=== PATIENT | female | born 1995 | race Caucasian/White ===

== ENCOUNTER 2017-03-16 21:49 | Emergency (ER) | payer OTHER ==
[~2017-03-16] VITALS: Ht 170.2 cm; Wt 65.8 kg
[2017-03-16 22:00] VITALS: BP 170/77
--- NOTE | 2017-03-16 22:22 | Emergency Room Report ---
History of Present Illness General Chief Complaint: Pain Source: Patient Present Illness HPI 21-year-old female with no sig pmhx p/w right-sided flank pain for one day Patient states pain started gradually today, localized to flank, non radiating, sharp and burning in nature, intermittent. No relieving or exacerbating factors. Severity is 6/10. Pt reports n/v, 4 episodes of nbnb vomiting, denies diarrhea Denies fever, chills. No hx of abdominal surgeries. No hx of endoscopies/colonoscopies. Patient states that one week ago she felt dysuria, states that she is prone to UTIs, she self medicated herself by drinking Azo and a lot of cranberry juice Allergies: Coded Allergies: No Known Allergies (Unverified , 03/16/17) Patient History Past Medical History: see triage record Past Surgical History: none Pertinent Family History: none Last Menstrual Period: 2 weeks ago Now: No - nexaplon implant Reviewed Nursing Documentation: PMH: Agreed, PSxH: Agreed Nursing Documentation-PMH Past Medical History: No History, Except For Hx Asthma: Yes Review of Systems All Other Systems: negative except mentioned in HPI Physical Exam Vital Signs Date Time Temp Pulse Resp B/P (MAP) Pulse Ox O2 Delivery O2 Flow Rate FiO2 03/16/17 21:55 97.5 81 16 170/77 100 Room Air Sp02 EP Interpretation: reviewed, normal General Appearance: alert, GCS 15, non-toxic, moderate distress Head: normocephalic, atraumatic Eyes: bilateral eye normal inspection, bilateral eye PERRL, bilateral eye EOMI ENT: normal ENT inspection, normal pharynx, normal voice, moist mucus membranes Neck: normal inspection, full range of motion, supple Respiratory: normal inspection, lungs clear, normal breath sounds, no respiratory distress, no retraction, no wheezing, speaking full sentences, chest symmetrical Cardiovascular #1: normal inspection, regular rate, rhythm, no edema, normal capillary refill Cardiovascular #2: 2+ radial (R), 2+ radial (L) Gastrointestinal: soft, non-distended, no guarding, other - No suprapubic or left lower quadrant tenderness, mild right-sided CVA tenderness, +RLQ tenderness without rebound. Cornejo sign is negative Musculoskeletal: normal inspection, back normal, normal range of motion, non- tender Neurologic: normal inspection, alert, oriented x3, responsive, motor strength/ tone normal, sensory intact, normal gait, speech normal Psychiatric: normal inspection, judgement/insight normal, memory normal Skin: normal inspection, normal color, no rash, warm/dry, well hydrated, normal turgor Medical Decision Making Diagnostic Impression: Primary Impression: Ovarian cyst ER Course 21-year-old female with right-sided flank pain Differential Diagnosis: UTI/pyelo, appendicitis, ovarian cyst rupture Plan: Basic labs, ua Zofran IVF ER course: Patient has remained stable during ED stay. RLE pain --- CT performed, appendix normal US performed - ovarian cyst without torsion Repeat abdominal exam is nontender. Tolerating PO feels better will dc home Disposition: Patient is to be discharged to home. Patient is instructed to follow up with their primary care doctor and OBGYN within 5 days. Strict return precautions discussed with patient such as fever, chills, worsening/severe abdominal pain, nausea, vomiting, black or bloody stools, which may indicate severe illness. Patient verbalizes understanding and agrees with plan. Please note that this Emergency Department Report was dictated using [employer] nurse practitioner technology software, occasionally this can lead to erroneous entry secondary to interpretation by the dictation equipment Laboratory Tests Test 03/16/17 22:05 03/16/17 22:20 Urine Color Pale yellow Urine Appearance Clear Urine pH 5 (4.5-8.0) Urine Specific [place] 1.020 (1.005-1.035) Urine Protein 1+ (NEGATIVE) H Urine Glucose (UA) Negative (NEGATIVE) Urine Ketones 2+ (NEGATIVE) H Urine Occult Blood 1+ (NEGATIVE) H Urine Nitrite Negative (NEGATIVE) Urine Bilirubin Negative (NEGATIVE) Urine Urobilinogen Normal MG/DL (0.0-1.0) Urine Leukocyte Esterase 1+ (NEGATIVE) H Urine RBC 0-2 /HPF (0 - 2) Urine WBC 2-4 /HPF (0 - 2) Urine Squamous Epithelial Cells Few /LPF (NONE/OCC) Urine Bacteria Few /HPF (NONE) Urine HCG, Qualitative Negative White Blood Count 11.4 K/UL (4.8-10.8) H Red Blood Count 4.88 M/UL (4.20-5.40) Hemoglobin 14.6 G/DL (12.0-16.0) Hematocrit 43.5 % (37.0-47.0) Mean Corpuscular Volume 89 FL (80-99) Mean Corpuscular Hemoglobin 30.0 PG (27.0-31.0) Mean Corpuscular Hemoglobin Concent 33.7 G/DL (32.0-36.0) Red Cell Distribution Width 12.4 % (11.6-14.8) Platelet Count 274 K/UL (150-450) Mean Platelet Volume 8.2 FL (6.5-10.1) Neutrophils (%) (Auto) 74.1 % (45.0-75.0) Lymphocytes (%) (Auto) 19.0 % (20.0-45.0) L Monocytes (%) (Auto) 5.3 % (1.0-10.0) Eosinophils (%) (Auto) 0.6 % (0.0-3.0) Basophils (%) (Auto) 1.0 % (0.0-2.0) Sodium Level 136 MMOL/L (136-145) Potassium Level 3.4 MMOL/L (3.5-5.1) L Chloride Level 100 MMOL/L (98-107) Carbon Dioxide Level 25 MMOL/L (21-32) Anion Gap 11 mmol/L (5-15) Blood Urea Nitrogen 11 mg/dL (7-18) Creatinine 1.0 MG/DL (0.55-1.30) Estimate Glomerular Filtration Rate > 60 mL/min (>60) Glucose Level 106 MG/DL (74-106) Calcium Level 10.0 MG/DL (8.5-10.1) Total Bilirubin 0.4 MG/DL (0.2-1.0) Aspartate Amino Transferase (AST) 15 U/L (15-37) Alanine Aminotransferase (ALT) 20 U/L (12-78) Alkaline Phosphatase 71 U/L (46-116) Total Protein 8.8 G/DL (6.4-8.2) H Albumin 4.9 G/DL (3.4-5.0) Globulin 3.9 g/dL Albumin/Globulin Ratio 1.3 (1.0-2.7) CT/MRI/US Diagnostic Results CT/MRI/US Diagnostic Results #1: Imaging Test Ordered: CT abdo pelvis Impression CT ABDOMEN & PELVIS With Contrast: 2.1 x 1.9 cm right ovarian cyst is suspected. If there is clinical concern for ovarian torsion, then pelvic ultrasound is recommended for further evaluation. Evaluation of the rectosigmoid colon is limited secondary to poor distention. Some wall thickening of the rectosigmoid colon cannot be excluded. The appendix is normal. No evidence for significant bowel loop dilation to suggest an obstructive process. No evidence for hydronephrosis. No definite evidence for ureteral stone. The intra-abdominal organs are unremarkable. Trace amount of nonspecific free fluid in the pelvis. No evidence for free intraperitoneal gas. by STAT RAD CT/MRI/US Diagnostic Results #2: Imaging Test Ordered: US pelvic Impression pelvic sono performed R ovarian cyst good flow b/l , no torsion Last Vital Signs Date Time Temp Pulse Resp B/P (MAP) Pulse Ox O2 Delivery O2 Flow Rate FiO2 03/16/17 21:55 97.5 81 16 170/77 100 Room Air Disposition: HOME, SELF-CARE Condition: Improved Eduardo Aviles M.D. Mar 16, 2017 22:22
[2017-03-16 22:23] LABS: APPEARANCE,URINE CLEAR; BILIRUBIN, URINE NEGATIVE (NEGATIVE); COLOR,URINE PALE YELLOW; GLUCOSE, URINE (UA) NEGATIVE (NEGATIVE); KETONES,URINE 2+ (NEGATIVE); LEUKOCYTE ESTERASE ,URINE 1+ (NEGATIVE); NITRITE,URINE NEGATIVE (NEGATIVE); PH,URINE 5 (4.5-8.0); PROTEIN,URINE 1+ (NEGATIVE); UROBILINOGEN,URINE NORMAL MG/DL (0.0-1.0)
[2017-03-16 22:47] LABS: EOSINOPHILS % (AUTO) 0.6 % (0.0-3.0); HEMATOCRIT 43.5 % (37.0-47.0); HEMOGLOBIN 14.6 G/DL (12.0-16.0); MEAN CORPUSCULAR VOLUME 89 FL (80-99); MONOCYTES % (AUTO) 5.3 % (1.0-10.0); NEUTROPHILS % (AUTO) 74.1 % (45.0-75.0); PLATELET COUNT 274 K/UL (150-450); RED BLOOD COUNT 4.88 M/UL (4.20-5.40); RED CELL DISTRIBUTION WIDTH 12.4 % (11.6-14.8); WHITE BLOOD COUNT 11.4 K/UL (4.8-10.8)
[2017-03-16 23:11] LABS: ALANINE AMINOTRANSFERASE 20 U/L (12-78); ALBUMIN 4.9 G/DL (3.4-5.0); ALBUMIN/GLOBULIN RATIO 1.3 (1.0-2.7); ALKALINE PHOSPHATASE 71 U/L (46-116); ANION GAP 11 mmol/L (5-15); ASPARTATE AMINO TRANSFERASE 15 U/L (15-37); BILIRUBIN,TOTAL 0.4 MG/DL (0.2-1.0); BLOOD UREA NITROGEN 11 mg/dL (7-18); CARBON DIOXIDE 25 MMOL/L (21-32); CHLORIDE 100 MMOL/L (98-107); POTASSIUM 3.4 MMOL/L (3.5-5.1); SODIUM 136 MMOL/L (136-145)
[2017-03-16] MEDS ORDERED: Ketorolac 30mg Inj IV ONE (23:30)
[2017-03-17] VITALS: BP 165/69
[2017-03-17 01:55] VITALS: BP 151/61
--- NOTE | 2017-03-17 11:09 | Diagnostic Imaging Report ---
Indication: Pelvic pain Technique: Ultrasound examination of the pelvis obtained transabdominally and endovaginally. Comparison: None. Findings: The uterus is normal in size and echogenicity. Endometrium is thin. Left ovary is normal. The right ovary contains an anechoic mass measuring 2.1 cm consistent with a cyst. No significant pelvic fluid. Impression: Right ovarian cyst, likely physiologic. Are otherwise unremarkable.
--- NOTE | 2017-03-17 11:09 | Diagnostic Imaging Report ---
Indication: Right flank pain Technique: CT scan of the abdomen and pelvis was performed from the diaphragms to the symphysis pubis with intravenous contrast material and oral contrast material. Biphasic liver scanning was employed. 5 mm sections were generated. Axial, coronal, and sagittal images are presented. Dose: Total Dose Length Product - DLP [address] Dose Index - CTDIvol(s) 12.33 mGy. Comparison: None Findings: The liver, gallbladder, and spleen are unremarkable. The pancreas is normal. Aorta and inferior vena cava are unremarkable. Adrenal glands are normal. The kidneys are unremarkable. The retroperitoneum is free of adenopathy. The bowel appears normal. The appendix is normal. The uterus is unremarkable. The bladder is normal. There is a 1.7 cm cyst in the left ovary. Low density areas also noted in the right ovary measuring approximately 2 cm, likely a cyst. The remainder the study is unremarkable. Impression: Ovarian cysts. Otherwise negative. The above report is concordant with preliminary reading by [facility] . The CT scanner at [facility] is accredited by the [employer] and the scans are performed using protocols designed to limit radiation exposure to as low as reasonably achievable to attain images of sufficient resolution adequate for diagnostic evaluation.
== END 2017-03-17 01:55 | disposition home or self-care (01) ==
LOC: EMR 23:34
DX: N83.201 Unspecified ovarian cyst, right side (principal); J45.909 Unspecified asthma, uncomplicated
CPT/HCPCS: 36415; 74177; 76830; 76856; 80053; 81003; 81025; 85025; 96361; 96374; 96375; 99284; J1885; J2405; Q9967

== ENCOUNTER 2017-05-18 07:18 | Emergency (ER) | payer OTHER ==
[~2017-05-18] VITALS: Ht 170.2 cm; Wt 61.2 kg
[2017-05-18] MEDS ORDERED: UNOBMED (07:33)
[2017-05-18] MEDS ORDERED: LR 1000ml 1,000 ML IV STA (07:43)
--- NOTE | 2017-05-18 07:50 | Emergency Room Report ---
History of Present Illness General Chief Complaint: General Complaint Source: Patient Present Illness HPI 22-year-old female walks in with one week of nausea, vomiting, now associated with burning pain in epigastrium upper chest area that is worse with coughing. Patient states multiple sick contacts at home and work with similar symptoms. Endorsing subjective fevers and chills at home. Did not receive flu vaccine nature. Denies history of asthma or COPD, diabetes or renal disease. Allergies: Coded Allergies: No Known Allergies (Unverified , 03/16/17) Patient History Past Medical History: other - Basilio-Danlos Past Surgical History: none Pertinent Family History: none Social History: Denies: smoking, alcohol use, drug use Last Menstrual Period: Current Now: No Immunizations: UTD Reviewed Nursing Documentation: PMH: Agreed, PSxH: Agreed Nursing Documentation-PMH Hx Asthma: Yes Review of Systems All Other Systems: negative except mentioned in HPI Physical Exam Vital Signs Date Time Temp Pulse Resp B/P (MAP) Pulse Ox O2 Delivery O2 Flow Rate FiO2 05/18/17 07:26 98.1 77 19 134/79 100 Room Air Sp02 EP Interpretation: reviewed, normal General Appearance: normal inspection, no apparent distress, alert, GCS 15, non -toxic, mild distress Head: normocephalic, atraumatic Eyes: bilateral eye PERRL, bilateral eye EOMI ENT: normal ENT inspection, hearing grossly normal, normal pharynx, no angioedema, normal voice, TMs + canals normal, uvula midline, moist mucus membranes Neck: normal inspection, full range of motion, supple, thyroid normal, no meningismus, no bony tend Respiratory: normal inspection, lungs clear, normal breath sounds, no rhonchi, no respiratory distress, no retraction, no accessory muscle use, no wheezing, speaking full sentences Cardiovascular #1: regular rate, rhythm, no edema, no JVD, normal capillary refill Gastrointestinal: normal inspection, normal bowel sounds, non tender, soft, no mass, no peritonitis, non-distended, no guarding, no hernia, no pulsatile mass Genitourinary: no CVA tenderness Musculoskeletal: normal inspection, back normal, normal range of motion, no calf tenderness, pelvis stable, Kamran's Sign negative Neurologic: normal inspection, alert, oriented x3, responsive, blast hole driller III-XII nml as tested, motor strength/tone normal, cerebellar normal, normal gait, speech normal Psychiatric: normal inspection, judgement/insight normal, mood/affect normal, no suicidal/homicidal ideation, no delusions Skin: normal inspection, other - dry skin tugor Lymphatic: normal inspection, no adenopathy Medical Decision Making Diagnostic Impression: Primary Impression: Nausea & vomiting Qualified Codes: R11.2 - Nausea with vomiting, unspecified ER Course Patient with one week of nausea vomiting and subjective fevers chills. Vital signs stable, afebrile, nonseptic appearing. Patient with continued vomiting and unable to tolerate by mouth On exam patient has dry skin turgor, looks dehydrated Given IV fluid hydration and IV Zofran. CMP is not indicate any metabolic abnormalities improved after medication Rx Zofran close primary care followup ER course: Patient has remained stable during ED stay. Disposition: Patient is to be discharged to home. Prescriptions given are zofran Patient is instructed to follow up with their primary care doctor within 5 days. Strict return precautions discussed with patient such as fever, chills, worsening/severe pain, nausea, vomiting, which may indicate severe illness. Patient verbalizes understanding and agrees with plan. Please note that this Emergency Department Report was dictated using [employer] analyst technology software, occasionally this can lead to erroneous entry secondary to interpretation by the dictation equipment Last Vital Signs Date Time Temp Pulse Resp B/P (MAP) Pulse Ox O2 Delivery O2 Flow Rate FiO2 05/18/17 07:26 98.1 77 19 134/79 100 Room Air Status: improved Disposition: HOME, SELF-CARE Scripts Ondansetron Odt* (ZOFRAN ODT*) 4 Mg Tab.rapdis 4 MG ORAL Q6H Y for Nausea & Vomiting for 7 Days, #30 TAB 0 Refills Prov: YULIA PLATA M.D. 05/18/17 YULIA PLATA M.D. May 18, 2017 07:50
[2017-05-18 08:26] LABS: ANION GAP 12 mmol/L (5-15); BLOOD UREA NITROGEN 16 mg/dL (7-18); CALCIUM 8.3 MG/DL (8.5-10.1); CARBON DIOXIDE 22 MMOL/L (21-32); CHLORIDE 104 MMOL/L (98-107); CREATININE 0.8 MG/DL (0.55-1.30); POTASSIUM 3.5 MMOL/L (3.5-5.1); SODIUM 138 MMOL/L (136-145)
[2017-05-18 08:31] LABS: ALANINE AMINOTRANSFERASE 15 U/L (12-78); ALBUMIN 4.4 G/DL (3.4-5.0); ALBUMIN/GLOBULIN RATIO 1.2 (1.0-2.7); ALKALINE PHOSPHATASE 57 U/L (46-116); ASPARTATE AMINO TRANSFERASE 15 U/L (15-37); BILIRUBIN,TOTAL 0.7 MG/DL (0.2-1.0)
[2017-05-18] MEDS ORDERED: ZOFRAN ODT4 MG ORAL (08:38)
[2017-05-18] MEDS ORDERED: Metoclopramide 10mg/2ml Inj IVP ONE ×2 (08:45→09:00)
[2017-05-18 09:44] VITALS: BP 132/76
== END 2017-05-18 09:40 | disposition home or self-care (01) ==
LOC: EMR 07:44
DX: R11.2 Nausea with vomiting, unspecified (principal); J45.909 Unspecified asthma, uncomplicated
CPT/HCPCS: 36415; 80053; 96374; 96375; 99284; J2405; J2765

== ENCOUNTER 2018-04-07 19:29 | Emergency (ER) | payer OTHER ==
[~2018-04-07] VITALS: Ht 170.2 cm; Wt 63.5 kg
[~2018-04-07 19:29] MED LIST: UNOBMED; ZOFRAN ODT4 MG ORAL
[2018-04-07 19:40] VITALS: BP 121/58
[2018-04-07] MEDS ORDERED: Metoclopramide 10mg/2ml Inj IVP ONE (19:45)
--- NOTE | 2018-04-07 19:59 | Emergency Room Report ---
History of Present Illness General Chief Complaint: Nausea, Vomiting, and Diarrhea Source: Patient Present Illness HPI 22-year-old female presents to the emergency department complaining of multiple persistent episodes of nausea, vomiting and diarrhea 4 days. Patient denies fevers or chills. Patient reports she is unable to keep anything down. Patient denies or abdominal pain/tenderness. Patient reports she only has some pain when she is having an episode of vomiting otherwise it subsides. She denies recent antibiotic use, travel or ill contacts. Denies chest pain, dizziness, syncope. Denies pain at the moment. Pt. reports she self d/c from an unknown psych medication two weeks ago. Allergies: Coded Allergies: No Known Allergies (Unverified , 03/16/17) Patient History Past Medical History: see triage record Past Surgical History: none Pertinent Family History: none Last Menstrual Period: 01/25/18 Now: No : 0 Para: 0 Reviewed Nursing Documentation: PMH: Agreed; PSxH: Agreed Nursing Documentation-PMH Past Medical History: No History, Except For Hx Asthma: Yes Review of Systems All Other Systems: negative except mentioned in HPI Physical Exam Vital Signs Date Time Temp Pulse Resp B/P (MAP) Pulse Ox O2 Delivery O2 Flow Rate FiO2 04/07/18 19:36 98.2 78 16 121/58 98 Room Air Sp02 EP Interpretation: reviewed, normal General Appearance: alert, GCS 15, non-toxic, mild distress Head: normocephalic, atraumatic Eyes: bilateral eye normal inspection, bilateral eye PERRL ENT: hearing grossly normal, normal voice Neck: full range of motion Respiratory: chest non-tender, lungs clear, normal breath sounds, speaking full sentences Cardiovascular #1: regular rate, rhythm Gastrointestinal: normal bowel sounds, non tender, soft, non-distended, no guarding Genitourinary: normal inspection, no CVA tenderness Musculoskeletal: back normal, gait/station normal, normal range of motion, non- tender Neurologic: alert, oriented x3, responsive, motor strength/tone normal, sensory intact, normal gait, speech normal, grossly normal Psychiatric: judgement/insight normal Skin: normal color, no rash, warm/dry, well hydrated, diaphoresis - pt. having intermittent bouts of diaphoresis Medical Decision Making PA Attestation Dr. chang is my supervising Physician whom patient management has been discussed with. Diagnostic Impression: Primary Impression: Nausea, vomiting, and diarrhea Additional Impression: Diaphoresis ER Course 22-year-old female presents to the emergency department complaining of multiple persistent episodes of nausea, vomiting and diarrhea 4 days. Patient denies fevers or chills. Patient reports she is unable to keep anything down. Patient denies or abdominal pain/tenderness. Patient reports she only has some pain when she is having an episode of vomiting otherwise it subsides. She denies recent antibiotic use, using travel or ill contacts. Denies chest pain, dizziness, syncope. Denies pain at the moment. Pt. reports she self d/c from an unknown psych medication two weeks ago. Ddx considered but are not limited to GE, colitis, acute appy, SBO, Cyclical Vomiting secondary to THC, * Vital signs: pt. is afebrile, H&PE are most consistent with GE most likely viral in etiology, no evidence to suggest acute abdomen on physical exam. ORDERS: - CBC,CMP, LIPASE: UNREMARKABLE -Urine Hcg: negative -UDS: Positive for THC ED INTERVENTIONS: -1000 NS iv hydration, -Reglan 10mg IV DISPOSITION: Pt. Requests AMA. - Pt. is Diaphoretic, jittery/shaking and Pt. has not been fully cleared from ED. Labs pending at time of AMA Request. - At this time the patient is requesting to leave AGAINST MEDICAL ADVICE. I believe that this patient has the capacity to make decisions on her own. I discussed with the patient the risks of leaving AMA. Some of these risks include delay in diagnosis and treatment, as well as worsening of symptoms, organ damage, permanent disability or even . After discussing these risks with the patient. She continues to express her want and intention to leave AGAINST MEDICAL ADVICE. I encouraged the patient to return at any time, and that she will be welcome here in the emergency department to continue medical management. Labs Test 04/07/18 20:05 04/07/18 20:14 White Blood Count 10.4 K/UL (4.8-10.8) Red Blood Count 4.74 M/UL (4.20-5.40) Hemoglobin 12.5 G/DL (12.0-16.0) Hematocrit 38.0 % (37.0-47.0) Mean Corpuscular Volume 80 FL (80-99) Mean Corpuscular Hemoglobin 26.4 PG (27.0-31.0) Mean Corpuscular Hemoglobin Concent 32.9 G/DL (32.0-36.0) Red Cell Distribution Width 13.3 % (11.6-14.8) Platelet Count 310 K/UL (150-450) Mean Platelet Volume 7.8 FL (6.5-10.1) Neutrophils (%) (Auto) 72.5 % (45.0-75.0) Lymphocytes (%) (Auto) 21.5 % (20.0-45.0) Monocytes (%) (Auto) 4.9 % (1.0-10.0) Eosinophils (%) (Auto) 0.0 % (0.0-3.0) Basophils (%) (Auto) 1.1 % (0.0-2.0) Sodium Level 139 MMOL/L (136-145) Potassium Level 3.6 MMOL/L (3.5-5.1) Chloride Level 105 MMOL/L (98-107) Carbon Dioxide Level 25 MMOL/L (21-32) Anion Gap 9 mmol/L (5-15) Blood Urea Nitrogen 11 mg/dL (7-18) Creatinine 0.7 MG/DL (0.55-1.30) Estimat Glomerular Filtration Rate > 60 mL/min (>60) Glucose Level 101 MG/DL (74-106) Calcium Level 9.0 MG/DL (8.5-10.1) Total Bilirubin 0.4 MG/DL (0.2-1.0) Aspartate Amino Transf (AST/SGOT) 13 U/L (15-37) Alanine Aminotransferase (ALT/SGPT) 18 U/L (12-78) Alkaline Phosphatase 74 U/L (46-116) Total Protein 8.3 G/DL (6.4-8.2) Albumin 3.9 G/DL (3.4-5.0) Globulin 4.4 g/dL Albumin/Globulin Ratio 0.9 (1.0-2.7) Lipase 80 U/L (73-393) Urine Color Yellow Urine Appearance Clear Urine pH 7 (4.5-8.0) Urine Specific [place] 1.010 (1.005-1.035) Urine Protein 2+ (NEGATIVE) Urine Glucose (UA) Negative (NEGATIVE) Urine Ketones 1+ (NEGATIVE) Urine Blood 2+ (NEGATIVE) Urine Nitrite Negative (NEGATIVE) Urine Bilirubin Negative (NEGATIVE) Urine Urobilinogen Normal MG/DL (0.0-1.0) Urine Leukocyte Esterase 2+ (NEGATIVE) Urine RBC 2-4 /HPF (0 - 2) Urine WBC 5-10 /HPF (0 - 2) Urine Squamous Epithelial Cells Few /LPF (NONE/OCC) Urine Bacteria Few /HPF (NONE) Urine HCG, Qualitative Negative (NEGATIVE) Urine Opiates Screen Negative (NEGATIVE) Urine Barbiturates Screen Negative (NEGATIVE) Phencyclidine (PCP) Screen Negative (NEGATIVE) Urine Amphetamines Screen Negative (NEGATIVE) Urine Benzodiazepines Screen Negative (NEGATIVE) Urine Cocaine Screen Negative (NEGATIVE) Urine Marijuana (THC) Screen Positive (NEGATIVE) Last Vital Signs Date Time Temp Pulse Resp B/P (MAP) Pulse Ox O2 Delivery O2 Flow Rate FiO2 04/07/18 19:36 98.2 78 16 121/58 98 Room Air Disposition: AGAINST MEDICAL ADVICE Condition: Unknown Scripts Dicyclomine Hcl* (DICYCLOMINE HCL*) 10 Mg Capsule 10 MG PO QID, #12 CAP Prov: Katalina Elena 04/07/18 Ondansetron* (ZOFRAN*) 4 Mg Tablet 4 MG ORAL Q6H PRN for Nausea & Vomiting, #12 TAB Prov: Katalina Elena 04/07/18 Patient Instructions: Diarrhea, Adult, [id number], Nausea and Vomiting, Adult , [id number] Additional Instructions: You are leaving against medical advice prior to full medical evaluation. You are encouraged to return to the ED for continued evaluation if you decided to change your mind. Leaving AMA puts you at risk for : worsening of current symptoms, new symptoms, delay in diagnosis and treatment, surgical emergency, permanent disability, and . you are releasing medical liability by your refusal for care. It has been determined that, at this time, you have the capacity to make decisions regarding your health management. Katalina Elena Apr 07, 2018 19:59
[2018-04-07 20:28] LABS: BASOPHILS % (AUTO) 1.1 % (0.0-2.0); HEMOGLOBIN 12.5 G/DL (12.0-16.0); LYMPHOCYTES % (AUTO) 21.5 % (20.0-45.0); MEAN CORPUSCULAR VOLUME 80 FL (80-99); MONOCYTES % (AUTO) 4.9 % (1.0-10.0); NEUTROPHILS % (AUTO) 72.5 % (45.0-75.0); PLATELET COUNT 310 K/UL (150-450); RED BLOOD COUNT 4.74 M/UL (4.20-5.40); RED CELL DISTRIBUTION WIDTH 13.3 % (11.6-14.8); WHITE BLOOD COUNT 10.4 K/UL (4.8-10.8)
[2018-04-07 20:38] LABS: ALANINE AMINOTRANSFERASE 18 U/L (12-78); ALBUMIN 3.9 G/DL (3.4-5.0); ALBUMIN/GLOBULIN RATIO 0.9 (1.0-2.7); ALKALINE PHOSPHATASE 74 U/L (46-116); ANION GAP 9 mmol/L (5-15); ASPARTATE AMINO TRANSFERASE 13 U/L (15-37); BILIRUBIN,TOTAL 0.4 MG/DL (0.2-1.0); BLOOD UREA NITROGEN 11 mg/dL (7-18); CARBON DIOXIDE 25 MMOL/L (21-32); CHLORIDE 105 MMOL/L (98-107); CREATININE 0.7 MG/DL (0.55-1.30); POTASSIUM 3.6 MMOL/L (3.5-5.1); SODIUM 139 MMOL/L (136-145)
[2018-04-07 20:40] LABS: APPEARANCE,URINE CLEAR; BILIRUBIN, URINE NEGATIVE (NEGATIVE); GLUCOSE, URINE (UA) NEGATIVE (NEGATIVE); KETONES,URINE 1+ (NEGATIVE); LEUKOCYTE ESTERASE ,URINE 2+ (NEGATIVE); NITRITE,URINE NEGATIVE (NEGATIVE); PH,URINE 7 (4.5-8.0); PROTEIN,URINE 2+ (NEGATIVE); UROBILINOGEN,URINE NORMAL MG/DL (0.0-1.0)
[2018-04-07 20:47] LABS: COLOR,URINE YELLOW
[2018-04-07] MEDS ORDERED: DICYCLOMINE HCL10 MG PO (21:06)
[2018-04-07] MEDS ORDERED: ZOFRAN4 M3 ORAL (21:06)
[2018-04-07 21:35] VITALS: BP 160/61
[2018-04-07 21:40] VITALS: BP 160/61
== END 2018-04-07 21:40 | disposition left against medical advice (07) ==
LOC: EMR 21:40
DX: R11.2 Nausea with vomiting, unspecified (principal); R19.7 Diarrhea, unspecified; R61 Generalized hyperhidrosis; J45.909 Unspecified asthma, uncomplicated
CPT/HCPCS: 36415; 80053; 80307; 81003; 81025; 83690; 85025; 96361; 96374; 99284; J2765

== ENCOUNTER 2018-11-07 11:19 | Emergency (ER) | payer OTHER ==
[~2018-11-07] VITALS: Ht 170.2 cm; Wt 65.8 kg
[~2018-11-07 11:19] MED LIST changes: +DICYCLOMINE HCL10 MG PO; +ZOFRAN4 M3 ORAL
[2018-11-07] MEDS ORDERED: Morphine Sulfate 4mg/ml Inj (IV USE ONLY) IVP ONE (12:00)
[2018-11-07] MEDS ORDERED: DiphenhydrAMINE 50mg/ml Inj IVP ONE (12:00)
--- NOTE | 2018-11-07 12:09 | NUR ---
ED Nurse Note:blood sent to labs and pt. received IV fluids with pain meds
[2018-11-07 12:13] VITALS: BP 154/80
[2018-11-07 12:17] LABS: HEMATOCRIT 43.1 % (37.0-47.0); HEMOGLOBIN 14.3 G/DL (12.0-16.0); MEAN CORPUSCULAR VOLUME 82 FL (80-99); PLATELET COUNT 346 K/UL (150-450); RED BLOOD COUNT 5.26 M/UL (4.20-5.40); RED CELL DISTRIBUTION WIDTH 12.6 % (11.6-14.8); WHITE BLOOD COUNT 12.4 K/UL (4.8-10.8)
[2018-11-07 12:48] LABS: ANION GAP 18 mmol/L (5-15); BLOOD UREA NITROGEN 14 mg/dL (7-18); CALCIUM 9.9 MG/DL (8.5-10.1); CARBON DIOXIDE 21 MMOL/L (21-32); CHLORIDE 103 MMOL/L (98-107); CREATININE 0.9 MG/DL (0.55-1.30); POTASSIUM 3.4 MMOL/L (3.5-5.1); SODIUM 142 MMOL/L (136-145)
[2018-11-07 12:52] LABS: ALANINE AMINOTRANSFERASE 21 U/L (12-78); ALBUMIN 4.6 G/DL (3.4-5.0); ALKALINE PHOSPHATASE 89 U/L (46-116); ASPARTATE AMINO TRANSFERASE 15 U/L (15-37); BILIRUBIN,TOTAL 0.5 MG/DL (0.2-1.0)
--- NOTE | 2018-11-07 12:52 | NUR ---
ED Nurse Note:urine sent to labs
--- NOTE | 2018-11-07 13:00 | Emergency Room Report ---
History of Present Illness General Chief Complaint: Abdominal Pain Source: Patient Present Illness HPI Patient presents to the emergency department today complaint acute onset abdominal pain. Patient states that she gets acute exacerbations of abdominal pain because she has history of connective tissue disorder. She denies any fever. She complains of diffuse abdominal discomfort with nausea vomiting and for the last couple of days. No other complaints are noted. She states that she is unable to tolerate any fluids. No other modifying factors. No other associated signs and symptoms. No other complaints were noted. Symptoms noted to be severe. Allergies: Coded Allergies: No Known Allergies (Unverified , 03/16/17) Patient History Past Medical History: asthma Past Surgical History: none Pertinent Family History: none Social History: Denies: smoking, alcohol use, drug use Last Menstrual Period: 3 weeks ago Reviewed Nursing Documentation: PMH: Agreed; PSxH: Agreed Nursing Documentation-PMH Hx Asthma: Yes Review of Systems All Other Systems: negative except mentioned in HPI Physical Exam Vital Signs Date Time Temp Pulse Resp B/P (MAP) Pulse Ox O2 Delivery O2 Flow Rate FiO2 11/07/18 11:20 96.1 94 16 163/82 (109) 100 Room Air Sp02 EP Interpretation: reviewed, normal General Appearance: normal inspection, alert, moderate distress Head: atraumatic Eyes: bilateral eye normal inspection ENT: normal ENT inspection, hearing grossly normal, normal voice Neck: normal inspection, full range of motion, supple, no bony tend Respiratory: normal inspection, lungs clear, normal breath sounds, no respiratory distress, no retraction, no wheezing Cardiovascular #1: regular rate, rhythm, no edema Gastrointestinal: normal inspection, normal bowel sounds, soft, no guarding, no hernia, tenderness - Diffusely tender Genitourinary: no CVA tenderness Musculoskeletal: normal inspection, back normal, normal range of motion Neurologic: normal inspection, alert, responsive, speech normal Psychiatric: normal inspection, judgement/insight normal, mood/affect normal Skin: normal inspection, normal color, no rash Medical Decision Making Diagnostic Impression: Primary Impression: Abdominal pain Additional Impressions: Dehydration Hypokalemia ER Course Patient presents to the emergency department today complaining of abdominal pain. Differential considerations include acute pancreatitis, cholecystitis, gastritis, hepatitis, appendicitis just to name a few. Given the severity of the patient's presentation I felt this is a highly complex patient. This patient required extensive workup. Patient is laboratory work-up was obtained. Patient's potassium was little bit low. Patient was advised to take potassium. Patient was given instructions. Patient was given fluids pain medication felt much better. Given the patient feels better with negative work-up will likely discharge patient recommend outpatient follow-up. Patient is advised to follow up with primary doctor in 2- 3 days and return the emergency room for any worsening symptoms and as needed. Labs Test 11/07/18 12:00 White Blood Count 12.4 K/UL (4.8-10.8) Red Blood Count 5.26 M/UL (4.20-5.40) Hemoglobin 14.3 G/DL (12.0-16.0) Hematocrit 43.1 % (37.0-47.0) Mean Corpuscular Volume 82 FL (80-99) Mean Corpuscular Hemoglobin 27.1 PG (27.0-31.0) Mean Corpuscular Hemoglobin Concent 33.1 G/DL (32.0-36.0) Red Cell Distribution Width 12.6 % (11.6-14.8) Platelet Count 346 K/UL (150-450) Mean Platelet Volume 7.1 FL (6.5-10.1) Neutrophils (%) (Auto) % (45.0-75.0) Lymphocytes (%) (Auto) % (20.0-45.0) Monocytes (%) (Auto) % (1.0-10.0) Eosinophils (%) (Auto) % (0.0-3.0) Basophils (%) (Auto) % (0.0-2.0) Last Vital Signs Date Time Temp Pulse Resp B/P (MAP) Pulse Ox O2 Delivery O2 Flow Rate FiO2 11/07/18 12:42 96.1 11/07/18 12:13 90 16 154/80 100 Room Air Status: improved Disposition: HOME, SELF-CARE Condition: Stable Scripts Ondansetron (Zofran) 4 Mg Tablet 4 MG ORAL Q6H PRN for Nausea & Vomiting, #10 TAB 0 Refills Prov: Barry Mann MD 11/07/18 Hydrocodone Bit/Acetaminophen 5-325* (NORCO 5-325*) 1 Each Tablet 1 TAB ORAL Q6H PRN for For Pain, #8 TAB 0 Refills Prov: Barry Mann MD 11/07/18 Referrals: [facility],REFERRING (PCP) Barry Mann MD Nov 07, 2018 13:00
[2018-11-07 13:08] LABS: APPEARANCE,URINE CLEAR; BILIRUBIN, URINE NEGATIVE (NEGATIVE); GLUCOSE, URINE (UA) NEGATIVE (NEGATIVE); KETONES,URINE 4+ (NEGATIVE); LEUKOCYTE ESTERASE ,URINE 3+ (NEGATIVE); NITRITE,URINE NEGATIVE (NEGATIVE); PH,URINE 6.5 (4.5-8.0); PROTEIN,URINE 2+ (NEGATIVE); UROBILINOGEN,URINE 1 MG/DL (0.0-1.0)
[2018-11-07 13:18] LABS: COLOR,URINE YELLOW
[2018-11-07] MEDS ORDERED: NORCO 5-325 TA1 EACH ORAL (13:30)
[2018-11-07] MEDS ORDERED: ZOFRAN4 MG ORAL (13:30)
[2018-11-07 14:20] VITALS: BP 142/81
--- NOTE | 2018-11-07 14:20 | NUR ---
ER DISCHARGE NOTE: Patient is cleared to be discharged per ERMD, pt is aox4, on room air, with stable vital signs. pt was given dc and prescription instructions, pt was able to verbalize understanding, pt id band and iv site removed without complications. pt is able to ambulate with steady gait. pt took all belongings.
[2018-11-07 14:41] VITALS: BP 142/81
[2018-11-07] MEDS ORDERED: IBUPROFEN800 M1 PO (21:47)
[2018-11-07] MEDS ORDERED: CYCLOBENZAPRINE5 MG ORAL (21:47)
[2018-11-07] MEDS ORDERED: VENLAFAXINE HCL25 MG ORAL (21:47)
== END 2018-11-07 14:43 | disposition home or self-care (01) ==
LOC: EMR 12:13
DX: R10.9 Unspecified abdominal pain (principal); E86.0 Dehydration; E87.6 Hypokalemia
CPT/HCPCS: 36415; 80053; 81003; 81025; 83690; 85007; 85025; 96361; 96374; 96375; 96376; 99284; J1200; J2270; J2405

== ENCOUNTER 2018-12-26 19:40 | Inpatient (IN) | payer OTHER ==
[~2018-12-26] VITALS: Ht 170.2 cm; Wt 68.0 kg
[~2018-12-26 19:40] MED LIST changes: +CYCLOBENZAPRINE5 MG ORAL; +IBUPROFEN800 M1 PO; +NORCO 5-325 TA1 EACH ORAL; +VENLAFAXINE HCL25 MG ORAL; +ZOFRAN4 MG ORAL
[2018-12-26 19:50] VITALS: BP 148/89
--- NOTE | 2018-12-26 19:50 | NUR ---
ED Nurse Note: pt walked in to ER c/O N/V, abd pain 11/19. VSS . pt is alert x4.
[2018-12-26] MEDS ORDERED: Capsaicin 0.075% Cream TOPIC ONE (20:30)
[2018-12-26 20:43] LABS: BASOPHILS % (AUTO) 0.6 % (0.0-2.0); EOSINOPHILS % (AUTO) 0.1 % (0.0-3.0); HEMATOCRIT 39.6 % (37.0-47.0); HEMOGLOBIN 13.1 G/DL (12.0-16.0); LYMPHOCYTES % (AUTO) 22.8 % (20.0-45.0); MEAN CORPUSCULAR VOLUME 79 FL (80-99); MONOCYTES % (AUTO) 6.1 % (1.0-10.0); NEUTROPHILS % (AUTO) 70.4 % (45.0-75.0); PLATELET COUNT 371 K/UL (150-450); RED BLOOD COUNT 5.01 M/UL (4.20-5.40); RED CELL DISTRIBUTION WIDTH 12.8 % (11.6-14.8); WHITE BLOOD COUNT 10.9 K/UL (4.8-10.8)
[2018-12-26 20:44] LABS: APPEARANCE,URINE SLIGHTLY CLOUDY; BILIRUBIN, URINE NEGATIVE (NEGATIVE); GLUCOSE, URINE (UA) NEGATIVE (NEGATIVE); KETONES,URINE 3+ (NEGATIVE); LEUKOCYTE ESTERASE ,URINE 3+ (NEGATIVE); NITRITE,URINE NEGATIVE (NEGATIVE); PH,URINE 6 (4.5-8.0); PROTEIN,URINE 2+ (NEGATIVE); UROBILINOGEN,URINE 1 MG/DL (0.0-1.0)
[2018-12-26 20:48] LABS: COLOR,URINE YELLOW
[2018-12-26 20:50] LABS: ANION GAP 14 mmol/L (5-15); BLOOD UREA NITROGEN 10 mg/dL (7-18); CALCIUM 9.4 MG/DL (8.5-10.1); CARBON DIOXIDE 20 MMOL/L (21-32); CHLORIDE 108 MMOL/L (98-107); CREATININE 0.8 MG/DL (0.55-1.30); POTASSIUM 3.4 MMOL/L (3.5-5.1); SODIUM 142 MMOL/L (136-145)
[2018-12-26 20:55] LABS: ALANINE AMINOTRANSFERASE 24 U/L (12-78); ALBUMIN 4.5 G/DL (3.4-5.0); ALBUMIN/GLOBULIN RATIO 1.1 (1.0-2.7); ALKALINE PHOSPHATASE 86 U/L (46-116); ASPARTATE AMINO TRANSFERASE 16 U/L (15-37); BILIRUBIN,TOTAL 0.4 MG/DL (0.2-1.0)
--- NOTE | 2018-12-26 21:29 | Emergency Room Report ---
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 She states that she is currently in an episode of her gastroparesis. She does use marijuana regularly. She states that she has been told previously about cannabis hyperemesis but that she is absolutely positive that this is not to the etiology of her cyclic vomiting. She states this is her typical episode. She has no other complaints. (Lynn Andino DO) Allergies: Coded Allergies: No Known Allergies (Unverified , 03/16/17) Patient History Past Medical History: see triage record, other - Basilio-Danlos, cyclic vomiting Social History: Reports: drug use - THC; Denies: smoking, alcohol use Last Menstrual Period: 12/20 Now: No : 0 Para: 0 Reviewed Nursing Documentation: PMH: Agreed; PSxH: Agreed (Lynn Andino DO) Nursing Documentation-PMH Past Medical History: No History, Except For Hx Asthma: Yes Hx Cancer: No Hx Gastrointestinal Problems: Yes - EDs (Lynn Andino DO) Review of Systems All Other Systems: negative except mentioned in HPI (Lynn Andino DO) Physical Exam Vital Signs Date Time Temp Pulse Resp B/P (MAP) Pulse Ox O2 Delivery O2 Flow Rate FiO2 12/26/18 19:48 98.6 74 19 150/92 (111) 98 Room Air Sp02 EP Interpretation: reviewed, normal General Appearance: no apparent distress, alert, GCS 15, non-toxic Head: normocephalic, atraumatic Eyes: bilateral eye normal inspection, bilateral eye PERRL ENT: hearing grossly normal, normal pharynx, no angioedema, normal voice Neck: full range of motion, supple/symm/no masses Respiratory: no respiratory distress, no retraction, no accessory muscle use, speaking full sentences Cardiovascular #1: regular rate, rhythm, no edema Gastrointestinal: non-distended, no guarding, no rebound Rectal: deferred Musculoskeletal: back normal, gait/station normal, normal range of motion Neurologic: alert, oriented x3, responsive, motor strength/tone normal, sensory intact, speech normal Psychiatric: judgement/insight normal, memory normal, mood/affect normal, no suicidal/homicidal ideation Skin: no rash (Lynn Andino DO) Medical Decision Making Diagnostic Impression: Primary Impression: Cyclic vomiting syndrome Qualified Codes: G43.A1 - Cyclical vomiting, intractable Additional Impression: UTI (urinary tract infection) Qualified Codes: N30.00 - Acute cystitis without hematuria ER Course This patient has a cyclic vomiting syndrome. Differential diagnosis includes gastroparesis related to your Basilio-Danlos syndrome versus cannabis hyperemesis syndrome. I did offer the patient capsaicin cream for possible cannabis hyperemesis. However, the patient immediately became upset and defensive stating that "all the doctors say the same thing and think it is the marijuana." I tried to explain the pain to the patient that the capsaicin cream may work for her even if it is not related to the cannabis. However, she remained upset and accusatory that I was judging her drug use. However, I did educate the patient politely that this could be the etiology. The patient was given 2 episodes of Zofran and IV fluids. The patient's urinalysis was slightly positive, she could have a urinary tract infection versus contamination. I did give the patient a dose of IV Rocephin as a precaution. The patient is undecided on whether she feels that she could go home or be admitted to the hospital. If the patient is discharged home [facility] Patient is turned over to Dr. Srinivasan. Laboratory Tests Test 12/26/18 20:30 White Blood Count 10.9 K/UL (4.8-10.8) H Red Blood Count 5.01 M/UL (4.20-5.40) Hemoglobin 13.1 G/DL (12.0-16.0) Hematocrit 39.6 % (37.0-47.0) Mean Corpuscular Volume 79 FL (80-99) L Mean Corpuscular Hemoglobin 26.2 PG (27.0-31.0) L Mean Corpuscular Hemoglobin Concent 33.2 G/DL (32.0-36.0) Red Cell Distribution Width 12.8 % (11.6-14.8) Platelet Count 371 K/UL (150-450) Mean Platelet Volume 6.2 FL (6.5-10.1) L Neutrophils (%) (Auto) 70.4 % (45.0-75.0) Lymphocytes (%) (Auto) 22.8 % (20.0-45.0) Monocytes (%) (Auto) 6.1 % (1.0-10.0) Eosinophils (%) (Auto) 0.1 % (0.0-3.0) Basophils (%) (Auto) 0.6 % (0.0-2.0) Urine Color Yellow Urine Appearance Slightly cloudy Urine pH 6 (4.5-8.0) Urine Specific [place] 1.020 (1.005-1.035) Urine Protein 2+ (NEGATIVE) H Urine Glucose (UA) Negative (NEGATIVE) Urine Ketones 3+ (NEGATIVE) H Urine Blood 5+ (NEGATIVE) H Urine Nitrite Negative (NEGATIVE) Urine Bilirubin Negative (NEGATIVE) Urine Urobilinogen 1 MG/DL (0.0-1.0) H Urine Leukocyte Esterase 3+ (NEGATIVE) H Urine RBC 10-15 /HPF (0 - 2) H Urine WBC 5-10 /HPF (0 - 2) H Urine Squamous Epithelial Cells Few /LPF (NONE/OCC) Urine Bacteria Moderate /HPF (NONE) H Urine HCG, Qualitative Negative (NEGATIVE) Sodium Level 142 MMOL/L (136-145) Potassium Level 3.4 MMOL/L (3.5-5.1) L Chloride Level 108 MMOL/L (98-107) H Carbon Dioxide Level 20 MMOL/L (21-32) L Anion Gap 14 mmol/L (5-15) Blood Urea Nitrogen 10 mg/dL (7-18) Creatinine 0.8 MG/DL (0.55-1.30) Estimate Glomerular Filtration Rate > 60 mL/min (>60) Glucose Level 121 MG/DL (74-106) H Calcium Level 9.4 MG/DL (8.5-10.1) Total Bilirubin 0.4 MG/DL (0.2-1.0) Aspartate Amino Transferase (AST) 16 U/L (15-37) Alanine Aminotransferase (ALT) 24 U/L (12-78) Alkaline Phosphatase 86 U/L (46-116) Total Protein 8.7 G/DL (6.4-8.2) H Albumin 4.5 G/DL (3.4-5.0) Globulin 4.2 g/dL Albumin/Globulin Ratio 1.1 (1.0-2.7) Lipase 81 U/L (73-393) Urine Opiates Screen Negative (NEGATIVE) Urine Barbiturates Screen Negative (NEGATIVE) Phencyclidine (PCP) Screen Negative (NEGATIVE) Urine Amphetamines Screen Negative (NEGATIVE) Urine Benzodiazepines Screen Negative (NEGATIVE) Urine Cocaine Screen Negative (NEGATIVE) Urine Marijuana (THC) Screen Positive (NEGATIVE) H (Lynn Andino DO) ER Course Patient signed out to me. She is being admitted for intractable vomiting and abdominal pain and dehydration. Most likely cyclic vomiting syndrome. Patient is approved for here. I contacted Dr. Benson for admission. (Gio Srinivasan MD) Last Vital Signs Date Time Temp Pulse Resp B/P (MAP) Pulse Ox O2 Delivery O2 Flow Rate FiO2 12/26/18 19:50 98.4 78 19 148/89 98 Room Air (Lynn Andino Octavio HYLTON) Status: improved (Gio Srinivasan MD) Disposition: ADMITTED INPATIENT Condition: Serious Referrals: NON PHYSICIAN (PCP) Lynn Andino DO Dec 26, 2018 21:29 Gio Srinivasan MD Dec 26, 2018 22:11
[2018-12-26] MEDS ORDERED: cefTRIAXone 1 GM in NS 55 ML IVPB ONE (21:45)
[2018-12-26 21:49] VITALS: BP 145/86
[2018-12-26] MEDS ORDERED: Haloperidol Lactate 5 MG in D5W 55 ML IVPB ONE (22:30)
[2018-12-26] MEDS ORDERED: Promethazine HCl 25 MG in NS 55 ML IVPB ONE (22:30)
--- NOTE | 2018-12-26 23:12 | NUR ---
ED Nurse Note: pt was brought up to room 420-1 via bed in stable condition. Report given to DEMETRIA funez. belongings signed. belongings remained with pt.
--- NOTE | 2018-12-26 23:20 | NUR ---
NURSE NOTES: Pt received, awake alert and oriented in no acute distress. c/o nausea following administration of numerous antiemetics in ED. Pt VSS, IV right wrist 22 g patent, asymptomatic. Pt is lying left lateral, bed is locked in lowest position, side rails x2 Call light at bedside, personal belongings within reach. All belongings accounted for upon arrival to the unit. Belongings list signed by patient. oriented to hospital and room
[2018-12-26 23:46] VITALS: BP 124/84
--- NOTE | 2018-12-29 12:03 | Discharge Summary ---
Discharge Summary Discharge Summary _ DATE OF ADMISSION: 12/26/2018 DATE OF DISCHARGE: 12/27/2018 Patient left AGAINST MEDICAL ADVICE REASON FOR ADMISSION: 23 years old female with history of Basilio Danlos syndrome and cyclic vomiting, presented with episode of cyclic vomiting. Patient admits to using marijuana on a regular basis. Patient was told previously about cannabis hyperemesis , but she stated that marijuana was not the etiology of her cyclic vomiting. Upon evaluation vital signs were stable. Blood pressure was slightly elevated 150/92. Laboratory work-up revealed no leukocytosis, stable hemoglobin and hematocrit. Urinalysis revealed possible UTI. Urine test was negative. Potassium 3.4. Stable other electrolytes and renal parameters. Stable LFT and lipase. Urine toxicology screen was positive for marijuana. Patient was offered capsaicin cream for possible cannabis hyperemesis, but patient became very upset and defensive. Patient was explained that capsaicin cream can work for hyperemesis not related to cannabis, but patient remained upset and accusatory , and declined it. Patient received IV fluids and 2 doses of Zofran. Patient received dose of Rocephin for possible UTI. Patient admitted to medical surgical floor for further management HOSPITAL COURSE: Patient admitted to medical surgical floor. Patient started on the IV fluids. Antiemetic provided as needed. 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 The risks and consequences of signing AGAINST MEDICAL ADVICE were discussed with patient in detail. Patient verbalized understanding, nevertheless signed AMA form and left. FINAL DIAGNOSES: Cyclic vomiting syndrome Possible urinary tract infection I have been assigned to dictate discharge summary for this account. I was not involved in the patient's management. Lois Lucia NP Dec 29, 2018 12:03
== END 2018-12-27 06:45 | disposition left against medical advice (07) | DRG 54 ==
LOC: EMR 20:04 → 4E 22:13 → EDBEDREQ 22:36
DX: G43.A1 Cyclical vomiting, in migraine, intractable (principal); N39.0 Urinary tract infection, site not specified; E86.0 Dehydration; Q79.6 Ehlers-Danlos syndromes
CPT/HCPCS: 36415; 80053; 80307; 81003; 81025; 83690; 85025; 87086; 96361; 96365; 96375; 99285; J2405

== ENCOUNTER 2020-02-24 10:02 | Emergency (ER) | payer OTHER ==
[~2020-02-24] VITALS: Ht 170.2 cm; Wt 76.2 kg
--- NOTE | 2020-02-24 10:26 | NUR ---
ED Nurse Note: PT ambulated to ed c/o n/v/d x 1 year and half. pt states that this is an ongoing problem, pt appears pale and diaphoretic. pt was able to ambulate to restroom and obtain urine sample. pt is cooperative. and able to follow commands.
[2020-02-24 10:27] VITALS: BP 180/98
[2020-02-24] MEDS ORDERED: Metoclopramide 10mg/2ml Inj IVP ONE (10:30)
[2020-02-24] MEDS ORDERED: DiphenhydrAMINE 50mg/ml Inj IVP ONE (10:30)
--- NOTE | 2020-02-24 10:33 | Emergency Room Report ---
History of Present Illness General Chief Complaint: Abdominal Pain Source: Patient, Medical Record Present Illness HPI Disclaimer: Please note that this report is being documented using DRAGON technology. This can lead to erroneous entry secondary to incorrect interpretation by the dictating instrument. HPI: 24-year-old female history of Basilio-Danlos syndrome presents for evaluation of vomiting and diarrhea. Symptoms present 1 day. Cannot recall an inciting trigger. Awoke yesterday complaining of epigastric discomfort multiple rounds of nonbloody nonbilious emesis with loose stools as well. Denies black tarry stools or hematochezia. Denies pain in the lower abdomen, dysuria, hematuria. LMP 1 month ago. Patient uses marijuana for treatment of her Basilio-Danlos pain. She states she is been having abdominal symptoms, possible gastroparesis, for the past year but is not yet seen gastroenterology. She mis sed a PMD appointment 2 days ago but will reschedule. Denies history of intra- abdominal surgeries. 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 EOMI. Cardiovascular: Mildly tachycardic. S1 and S2 normal. No murmur appreciated Resp: Normal work of breathing. No cough, wheezing or crackles appreciated Abdomen: Abdomen is soft, nondistended. Tender to palpation in the epigastrium. No significant tenderness in the left or right upper quadrant. No Cornejo's tenderness. No tenderness in the lower quadrants. No masses or rebound palpable. No guarding Skin: Intact. No abrasions, laceration or rash over the exposed skin MSK: Normal tone and bulk. Moving all extremities. No obvious deformity. Neuro: Awake and alert. Mentating appropriately. Medical Decision Making Diagnostic Impression: Primary Impression: UTI (urinary tract infection) ER Course 24-year-old female presents for evaluation of vomiting and diarrhea 1 day duration. Differential includes known to gastritis, gastroenteritis, pancreatitis, cholecystitis, food poisoning, cyclic vomiting syndrome, electrolyte abnormalities, renal failure, dehydration among others. She got in stable condition and received IV fluids, antiemetics with significant improvement of her symptoms. She was found resting comfortably on reevaluation. Labs concerning for acute urinary tract infection. Other labs within normal limits. Patient was given a dose of Rocephin will be discharged on Macrobid. Does not note prior resistance. No emesis in the emergency department. She is stable for outpatient follow-up. Will follow up with her PMD and return to the emergency department new or worsening symptoms. He understands and agrees with this treatment plan. Laboratory Tests Test 02/24/20 10:20 White Blood Count 15.9 K/UL (4.8-10.8) H Red Blood Count 5.23 M/UL (4.20-5.40) Hemoglobin 11.1 G/DL (12.0-16.0) L Hematocrit 34.9 % (37.0-47.0) L Mean Corpuscular Volume 67 FL (80-99) L Mean Corpuscular Hemoglobin 21.2 PG (27.0-31.0) L Mean Corpuscular Hemoglobin Concent 31.6 G/DL (32.0-36.0) L Red Cell Distribution Width 14.9 % (11.6-14.8) H Platelet Count 442 K/UL (150-450) Mean Platelet Volume 6.1 FL (6.5-10.1) L Neutrophils (%) (Auto) 78.5 % (45.0-75.0) H Lymphocytes (%) (Auto) 10.5 % (20.0-45.0) L Monocytes (%) (Auto) 6.4 % (1.0-10.0) Eosinophils (%) (Auto) 0.2 % (0.0-3.0) Basophils (%) (Auto) 4.4 % (0.0-2.0) H Urine Color Yellow Urine Appearance Cloudy Urine pH 6 (4.5-8.0) Urine Specific [place] 1.020 (1.005-1.035) Urine Protein 2+ (NEGATIVE) H Urine Glucose (UA) Negative (NEGATIVE) Urine Ketones 3+ (NEGATIVE) H Urine Blood 2+ (NEGATIVE) H Urine Nitrite Negative (NEGATIVE) Urine Bilirubin Negative (NEGATIVE) Urine Urobilinogen Normal MG/DL (0.0-1.0) Urine Leukocyte Esterase 3+ (NEGATIVE) H Urine RBC 10-15 /HPF (0 - 2) H Urine WBC 20-30 /HPF (0 - 2) H Urine Squamous Epithelial Cells Moderate /LPF (NONE/OCC) H Urine Amorphous Sediment Few /LPF (NONE) H Urine Bacteria Moderate /HPF (NONE) H Urine Mucus Moderate /LPF (NONE/OCC) H Urine HCG, Qualitative Negative (NEGATIVE) Sodium Level 138 MMOL/L (136-145) Potassium Level 3.6 MMOL/L (3.5-5.1) Chloride Level 104 MMOL/L (98-107) Carbon Dioxide Level 21 MMOL/L (21-32) Anion Gap 13 mmol/L (5-15) Blood Urea Nitrogen 10 mg/dL (7-18) Creatinine 0.9 MG/DL (0.55-1.30) Estimated Glomerular Filtration Rate > 60 mL/min (>60) Glucose Level 163 MG/DL (74-106) H Calcium Level 8.9 MG/DL (8.5-10.1) Total Bilirubin 0.5 MG/DL (0.2-1.0) Aspartate Amino Transferase (AST) 20 U/L (15-37) Alanine Aminotransferase (ALT) 16 U/L (12-78) Alkaline Phosphatase 100 U/L (46-116) Total Protein 8.7 G/DL (6.4-8.2) H Albumin 4.4 G/DL (3.4-5.0) Globulin 4.3 g/dL Albumin/Globulin Ratio 1.0 (1.0-2.7) Lipase 79 U/L (73-393) Urine Opiates Screen Negative (NEGATIVE) Urine Barbiturates Screen Negative (NEGATIVE) Phencyclidine (PCP) Screen Negative (NEGATIVE) Urine Amphetamines Screen Negative (NEGATIVE) Urine Benzodiazepines Screen Negative (NEGATIVE) Urine Cocaine Screen Negative (NEGATIVE) Urine Marijuana (THC) Screen Positive (NEGATIVE) H Last Vital Signs Date Time Temp Pulse Resp B/P (MAP) Pulse Ox O2 Delivery O2 Flow Rate FiO2 02/24/20 10:27 105 24 02/24/20 10:10 98.2 180/98 (125) 97 Disposition: HOME, SELF-CARE Condition: Improved Scripts Famotidine* (Pepcid 20mg tablet*) 20 Mg Tablet 20 MG ORAL DAILY for Gerd, #30 TAB 0 Refills Prov: Chapo Ceron MD 02/24/20 Ondansetron Odt* (ZOFRAN ODT*) 4 Mg Tab.rapdis 4 MG BC EVERY 6 HOURS PRN for Nausea & Vomiting, #20 TAB 0 Refills Prov: Chapo Ceron MD 02/24/20 Nitrofurantoin Monohyd/M-Cryst* (MACROBID 100 MG*) 100 Mg Capsule 100 MG ORAL EVERY 12 HOURS for 7 Days, #14 CAP Prov: Chapo Ceron MD 02/24/20 Chapo Ceron MD Feb 24, 2020 10:33
[2020-02-24 10:35] LABS: APPEARANCE,URINE CLOUDY; BILIRUBIN, URINE NEGATIVE (NEGATIVE); GLUCOSE, URINE (UA) NEGATIVE (NEGATIVE); KETONES,URINE 3+ (NEGATIVE); LEUKOCYTE ESTERASE ,URINE 3+ (NEGATIVE); NITRITE,URINE NEGATIVE (NEGATIVE); PH,URINE 6 (4.5-8.0); PROTEIN,URINE 2+ (NEGATIVE); UROBILINOGEN,URINE NORMAL MG/DL (0.0-1.0)
[2020-02-24 10:37] LABS: BASOPHILS % (AUTO) 4.4 % (0.0-2.0); EOSINOPHILS % (AUTO) 0.2 % (0.0-3.0); HEMATOCRIT 34.9 % (37.0-47.0); HEMOGLOBIN 11.1 G/DL (12.0-16.0); LYMPHOCYTES % (AUTO) 10.5 % (20.0-45.0); MEAN CORPUSCULAR VOLUME 67 FL (80-99); MONOCYTES % (AUTO) 6.4 % (1.0-10.0); NEUTROPHILS % (AUTO) 78.5 % (45.0-75.0); PLATELET COUNT 442 K/UL (150-450); RED BLOOD COUNT 5.23 M/UL (4.20-5.40); RED CELL DISTRIBUTION WIDTH 14.9 % (11.6-14.8); WHITE BLOOD COUNT 15.9 K/UL (4.8-10.8)
[2020-02-24] MEDS ORDERED: Metoclopramide 10mg/2ml Inj ONE (10:37)
[2020-02-24 10:38] LABS: COLOR,URINE YELLOW
[2020-02-24 10:42] LABS: ANION GAP 13 mmol/L (5-15); BLOOD UREA NITROGEN 10 mg/dL (7-18); CALCIUM 8.9 MG/DL (8.5-10.1); CARBON DIOXIDE 21 MMOL/L (21-32); CHLORIDE 104 MMOL/L (98-107); CREATININE 0.9 MG/DL (0.55-1.30); POTASSIUM 3.6 MMOL/L (3.5-5.1); SODIUM 138 MMOL/L (136-145)
[2020-02-24 10:46] LABS: ALANINE AMINOTRANSFERASE 16 U/L (12-78); ALBUMIN 4.4 G/DL (3.4-5.0); ALKALINE PHOSPHATASE 100 U/L (46-116); ASPARTATE AMINO TRANSFERASE 20 U/L (15-37); BILIRUBIN,TOTAL 0.5 MG/DL (0.2-1.0)
[2020-02-24] MEDS ORDERED: cefTRIAXone 1 GM in NS 55 ML IVPB ONE (11:00)
[2020-02-24] MEDS ORDERED: FAMOTIDINE20 MG ORAL (11:49)
[2020-02-24] MEDS ORDERED: NITROFURANTOIN100 M2 ORAL (11:49)
[2020-02-24] MEDS ORDERED: ONDANSETRON ODT4 MG BC (11:49)
[2020-02-24 11:50] VITALS: BP 132/83
== END 2020-02-24 11:50 | disposition home or self-care (01) ==
LOC: EMR 10:30
DX: N39.0 Urinary tract infection, site not specified (principal); R00.0 Tachycardia, unspecified; F41.9 Anxiety disorder, unspecified; Q79.60 Ehlers-Danlos syndrome, unspecified
CPT/HCPCS: 36415; 80053; 80307; 81003; 81025; 83690; 85025; 87086; 96365; 96375; J0696; J1200; J2405; J2765; J7030; S0028; Z7502; 99284